=== PATIENT | female | born 1955 | race African-American/Black ===

== ENCOUNTER 2022-08-25 18:14 | Emergency (ER) | payer OTHER ==
[~2022-08-25] VITALS: Ht 170.2 cm; Wt 70.3 kg
[2022-08-25] MEDS ORDERED: IV NORMAL SALINE 1000 ML BAG IV ONE (19:00)
[2022-08-25] MEDS ORDERED: HYDROMORPHONE 1 MG/1 ML DISP.SYRIN IV ONE ×2 (19:00→21:00)
--- NOTE | 2022-08-25 19:15 | NUR ---
Received report from TAMARA Steele.
[2022-08-25] MEDS ORDERED: HYDROMORPHONE 1 MG/1 ML DISP.SYRIN ONE ×2 (20:00→20:57)
[2022-08-25 20:11] LABS: HEMATOCRIT 40.8 % (31.2-41.9); MEAN CORPUSCULAR HEMOGLOBIN 28.3 uug (24.7-32.8); MEAN CORPUSCULAR VOLUME 88.2 fL (75.5-95.3); PLATELET COUNT (AUTO) 187 K/uL (179-408)
[2022-08-25 20:31] LABS: ALANINE AMINOTRANSFERASE 24 U/L (14-59); ALKALINE PHOSPHATASE 84 U/L (50-136); ASPARTATE AMINOTRANSFERASE 19 U/L (15-37); BILIRUBIN,DIRECT 0.2 mg/dL (0.0-0.2); BILIRUBIN,TOTAL 0.6 mg/dL (0.2-1.0); CARBON DIOXIDE 29 mmol/L (21-32); CHLORIDE 102 mmol/L (98-107); CREATININE 1.9 mg/dL (0.6-1.3); GLUCOSE 146 mg/dL (74-106); POTASSIUM 4.3 mmol/L (3.5-5.1); TOTAL PROTEIN, SERUM 7.7 g/dL (6.4-8.2); UREA NITROGEN, BLOOD 28 mg/dL (7-18)
[2022-08-25 20:50] LABS: LIPASE 83 U/L (73-393)
[2022-08-25] MEDS ORDERED: IV NS 1000 ML 1,000 ML IV ONE (21:00)
[2022-08-25] MEDS ORDERED: CEFTRIAXONE 1 G in IV DEXTROSE 5% 50 ML IV ONE (21:45)
[2022-08-25] MEDS ORDERED: CEFTRIAXONE /D5W 50ML IVPB **ER PYXIS IV ONE (22:00)
--- NOTE | 2022-08-26 00:25 | NUR ---
Urine specimen sent to the lab.
[2022-08-26 01:04] LABS: *BILIRUBIN,URIN NEGATIVE (NEGATIVE); *CLARITY,URINE CLEAR (CLEAR); *COLOR,URINE LIGHT YELLOW (YELLOW); *KETONES,URINE 2+ (NEGATIVE); *UROBILINOGEN,URINE 0.2 E.U./dl (NORMAL); LEUKOCYTE ESTERASE ,URINE TRACE (NEGATIVE); NITRITE, URINE NEGATIVE (NEGATIVE); UGLUCOSE NEGATIVE (NEGATIVE)
[2022-08-26 01:07] LABS: *BLOOD, URINE TRACE (NEGATIVE)
[2022-08-26 01:42] LABS: BACTERIA,URINE FEW /HPF (NONE SEEN); SQUAMOUS EPITHELIAL CELL,UR FEW /HPF (NONE SEEN)
--- NOTE | 2022-08-26 02:52 | NUR ---
Called [facility] for panel call.
[2022-08-26] MEDS ORDERED: HYDROCODONE/APAP 5-325MG TABLET PO PRN (04:15)
[2022-08-26] MEDS ORDERED: REMEDY ESSENTIAL ZINC PASTE 113 GM TP PRN (04:15)
[2022-08-26] MEDS ORDERED: ACETAMINOPHEN 325 MG TABLET PO PRN (04:15)
[2022-08-26] MEDS ORDERED: CEFTRIAXONE 1 G in IV DEXTROSE 5% 50 ML IV SCH ×2 (04:15→21:00)
[2022-08-26] MEDS ORDERED: ONDANSETRON 4 MG/2 ML VIAL IV PRN (04:15)
[2022-08-26] MEDS ORDERED: MORPHINE SULFATE 2 MG/1 ML DISP.SYRIN IV PRN (04:15)
[2022-08-26] MEDS ORDERED: IV NS 1000 ML 1,000 ML IV PRN (04:15)
[2022-08-26] MEDS ORDERED: MAGNESIUM HYDROXIDE 30 ML LIQUID UDC PO PRN (04:15)
--- NOTE | 2022-08-26 04:30 | NUR ---
Called for M/S bed, given rm 327.
[2022-08-26] MEDS ORDERED: HYDROMORPHONE 1 MG/1 ML DISP.SYRIN ONE (04:37)
[2022-08-26] MEDS ORDERED: ONDANSETRON 4 MG/2 ML VIAL IV ONE (04:45)
[2022-08-26] MEDS ORDERED: HYDROMORPHONE 1 MG/1 ML DISP.SYRIN IV ONE (04:45)
[2022-08-26] MEDS ORDERED: ONDANSETRON 4 MG/2 ML VIAL ONE (04:46)
--- NOTE | 2022-08-26 04:50 | NUR ---
[facility] called and stated that the patient will now be moved upstairs during the next shift, instead of now.
[2022-08-26 05:06] LABS: HEMATOCRIT 39.6 % (31.2-41.9); MEAN CORPUSCULAR HEMOGLOBIN 28.1 uug (24.7-32.8); MEAN CORPUSCULAR VOLUME 88.8 fL (75.5-95.3); PLATELET COUNT (AUTO) 171 K/uL (179-408)
[2022-08-26 05:22] LABS: MAGNESIUM 2.2 mg/dL (1.8-2.4); PHOSPHOROUS 4.6 mg/dL (2.5-4.9); POTASSIUM 3.9 mmol/L (3.5-5.1)
--- NOTE | 2022-08-26 07:13 | NUR ---
Report given to TAMARA Steele.
--- NOTE | 2022-08-26 07:45 | NUR ---
Attempted to give report for transfer to m/s floor room 327, per charge nurse they can not accept the pt due to short staffing. Nursing supervisor pipeline maintenance notified.
--- NOTE | 2022-08-26 08:30 | NUR ---
Pt moved to room 4B in the ER, placed in regular hospital bed for comfort. Plan of care discussed with pt and family. NAD noted at this time.
--- NOTE | 2022-08-26 09:15 | NUR ---
in to see patient and request transfer out to another facility for higher level of care. Per pt will need a urosotomy and it can not be done at this facility. spoke with pt and family about plan of care.
--- NOTE | 2022-08-26 09:20 | NUR ---
Called [facility] to speak with case supervisor regarding transfer out for matthew level of care. No case supervisor on duty today, charge nurse stated I should call [facility]. Called [facility] and spoke with nursing title supervisor who stated I should call case supervisor Soo at [phone].
--- NOTE | 2022-08-26 09:29 | NUR ---
Called manager of case Soo at [phone], she stated she is not information lead today.
[2022-08-26] MEDS ORDERED: IV 1/2NS 1000 ML 1,000 ML IV PRN (09:30)
--- NOTE | 2022-08-26 09:40 | NUR ---
Al (nursing waterworks supervisor) at bedside speaking with pt and family about possible transfer/procedure.
[2022-08-26] MEDS ORDERED: MORPHINE SULFATE 2 MG/1 ML DISP.SYRIN ONE (09:44)
--- NOTE | 2022-08-26 09:47 | NUR ---
Pt medicated for pain with Morphine 2mg IV as per prn order.
--- NOTE | 2022-08-26 11:00 | NUR ---
Per nursing packing room supervisor possible transfer to [facility]. Pt and family do not want to be transfered to [facility]. at bedside speaking with pt and family.
--- NOTE | 2022-08-26 11:25 | NUR ---
IV removed. Catheter intact and site benign. Pressure and 4x4 gauze applied to site. No bleeding noted.
--- NOTE | 2022-08-26 11:31 | NUR ---
Patient does not wish to proceed with medical care recommended by . Patient and family given information related to possible complications, up to and including , which could occur as a result of leaving the hospital at this time. Patient verbalizes understanding of risks involved due to leaving against medical advice. Patient has signed AMA form.
== END 2022-08-26 11:32 | disposition left against medical advice (07) ==
LOC: ER 18:14
DX: N13.2 Hydronephrosis with renal and ureteral calculous obstruction (principal); D72.89 Other specified disorders of white blood cells; E88.81 Metabolic syndrome and other insulin resistance; K57.30 Diverticulosis of large intestine without perforation or abscess without bleeding; D25.9 Leiomyoma of uterus, unspecified; I10 Essential (primary) hypertension; Z20.822 Contact with and (suspected) exposure to COVID-19; E87.20 Acidosis, unspecified; Z88.0 Allergy status to penicillin
CPT/HCPCS: 99284; 74176; 96365; 96361; 96375 ×2; 80076; 80048 ×2; 83690; 85025 ×2; 84484; 36415 ×2; 96376 ×2; 83605 ×2; 87426; 80061; 81001; 83036; 83735; 84100; 87040; J0696; J1170 ×3; J7040 ×2; J2405; J2270; A4663